=== PATIENT | female | born 1965 | race Caucasian/White ===

== ENCOUNTER → 2019-07-25 | Outpatient (CLI) | payer OTHER ==
[~2019-07-25] MED LIST: ATEN25 PO; HYDACE5 PO; LEVSOD200; LEVSOD25 PO; LORA1 PO; NAPR500 PO; PROZAC20 MG PO
[2019-07-25 15:51] LABS: Free Thyroxine 1.53 ng/dL (0.70-1.60); Thyroid Stimulating Hormone 0.049 uIU/mL (0.360-4.800)
== END | disposition home or self-care (01) ==
LOC: LAB SHORT 14:02 → LAB 14:02
PROVIDERS: Hospitalist
DX: E03.9 Hypothyroidism, unspecified (principal)
CPT/HCPCS: 84439; 84443

== ENCOUNTER → 2020-02-19 | Outpatient (CLI) | payer OTHER ==
[2020-02-19 16:38] LABS: Free Thyroxine 1.34 ng/dL (0.70-1.60); Thyroid Stimulating Hormone 0.029 uIU/mL (0.360-4.800)
== END | disposition home or self-care (01) ==
LOC: LAB SHORT 14:32 → LAB 14:32
PROVIDERS: Hospitalist
DX: Z12.4 Encounter for screening for malignant neoplasm of cervix (principal); E03.9 Hypothyroidism, unspecified
CPT/HCPCS: 84439; 84443; G0145

== ENCOUNTER 2021-03-12 22:40 | Emergency (ER) | payer OTHER ==
[~2021-03-12] VITALS: Ht 170.2 cm; Wt 83.9 kg
[2021-03-12] MEDS ORDERED: MELO7.5 (23:13)
[2021-03-12] MEDS ORDERED: LOSA50 PO (23:14)
[2021-03-12] MEDS ORDERED: CATAPRES0.1 MG (23:14)
[2021-03-12] MEDS ORDERED: NEURONTIN300 MG PO (23:15)
[2021-03-13 00:11] LABS: BASOPHILS ABSOLUTE AUTO 0.04 K/mm3 (0.00-0.23); BASOPHILS PERCENT AUTO 1 % (0-2); EOSINOPHILS PERCENT AUTO 2 % (0-6); Hematocrit 38.5 % (33.0-51.0); Hemoglobin 13.4 g/dL (11.5-16.0); IMMATURE GRAN ABSOLUTE AUTO 0.02 K/mm3 (0.00-0.10); IMMATURE GRAN PERCENT AUTO 0 % (0-1); LYMPHOCYTES ABSOLUTE AUTO 3.09 K/mm3 (0.84-5.20); LYMPHOCYTES PERCENT AUTO 37 % (21-46); MONOCYTES ABSOLUTE AUTO 0.62 K/mm3 (0.16-1.47); MONOCYTES PERCENT AUTO 7 % (4-13); Mean Corpuscular HGB 32.9 pg (26.0-34.0); Mean Corpuscular HGB Conc 34.8 g/dL (31.5-36.5); Mean Corpuscular Volume 95 fL (80-100); Mean Platelet Volume 9.4 fL (9.1-12.4); NEUTROPHILS ABSOLUTE AUTO 4.49 K/mm3 (1.96-9.15); NEUTROPHILS PERCENT AUTO 53 % (41-73); Platelet Count 345 K/mm3 (150-400); RDW Coefficient Variation 11.5 % (11.7-14.2); Red Blood Cell Count 4.07 M/mm3 (3.80-5.20); White Blood Cell Count 8.46 K/mm3 (4.00-11.30)
[2021-03-13 01:00] LABS: Alanine Aminotransfer (ALT/SGP 27 U/L (12-78); Albumin, Blood 3.6 g/dL (3.4-5.0); Alk Phos 76 U/L (50-136); Anion Gap 10 mmol/L (6-16); Aspartate Aminotrans (AST/SGOT 17 U/L (12-37); Bilirubin, Total 0.7 mg/dL (0.1-1.0); Blood Urea Nitrogen 20 mg/dL (8-24); Bun/Creatinine Ratio 31.7 (12.0-20.0); CO2, Blood 24 mmol/L (21-32); Calcium, Blood 9.3 mg/dL (8.5-10.1); Chloride, Blood 104 mmol/L (98-108); Creatinine, Blood 0.63 mg/dL (0.40-1.00); Globulin, Blood 3.5 g/dL (2.2-4.0); Glomerular Filtration Rate >60 (60-); Glucose, Blood 100 mg/dL (70-99); Potassium, Blood 3.6 mmol/L (3.5-5.5); Sodium, Blood 138 mmol/L (136-145); Thyroid Stimulating Hormone 0.841 uIU/mL (0.360-4.800); Total Protein, Blood 7.1 g/dL (6.4-8.2); Troponin I <0.015 ng/mL (0.000-0.040)
== END 2021-03-13 02:04 | disposition home or self-care (01) ==
LOC: ER 22:40
PROVIDERS: Emergency Medicine
DX: I10 Essential (primary) hypertension (principal); F41.9 Anxiety disorder, unspecified; E03.9 Hypothyroidism, unspecified; F17.210 Nicotine dependence, cigarettes, uncomplicated; Z88.5 Allergy status to narcotic agent; Z79.899 Other long term (current) drug therapy
CPT/HCPCS: 80053; 83880; 84443; 84484; 85025; 93005; 93010; 96374; 99283-25; A9270; J7030

== ENCOUNTER 2021-04-17 09:24 | Day surgery (SDC) | payer OTHER ==
[~2021-04-17] VITALS: Ht 172.7 cm; Wt 84.2 kg
[~2021-04-17 09:24] MED LIST changes: +Ativan1 MG PO; +CATAPRES0.1 MG PO; +LOSA50 PO; +MELO7.5 PO; +NEURONTIN300 MG PO
--- NOTE | 2021-04-17 13:28 | NUR ---
04/17/21 1328 Juliana Enciso BLOOD SAMPLE DRAWN UTILIZING BUTTERFLY NEEDLE FROM RIGHT HAND FOR TYPE AND SCREEN. PT TOLERATED WELL.
--- NOTE | 2021-04-17 17:24 | NUR ---
SHIFT SUMMARY PT A&OX4, VSS/RA, ENIO PO, PAIN TREATED WITH TYLENOL AND TORADOL, REPOSITIONS SELF WELL. S/P L OLIVIER, AQUACEL CDI, TEDS/SCDS/POLAR STEWART ON. AWAITING POST-OP VOID. WILL REPORT TO ONCAVANI BANKS RN.
--- NOTE | 2021-04-18 03:16 | NUR ---
SHIFT SUMMARY POD1 L TOTAL HIP ARTHROPLASTY. L HIP WITH AQUACEL DRESSING, CDI. LLE IS TTWB. PT AMBULATES WITH FWW, GB IN SBA. TOLERATING IT WELL. PT REPORT PAIN 3-4/10. PAIN MANAGED WITH 10MG BAO, TYLENOL AND TORADOL. TOLERATING REG DIET, DENIES NAUSEA AND VOMITING. VOIDING ADEQUATELY. VSS. PT DENIES CHEST PAIN AND SOB. PT ALSO DENIES NUMBNESS AND TINGLING. EXPERIENCE SOME TINGLING AT THE BOTTOM OF L FOOT ONCE. CALL LIGHT WITHIN REACH. WILL PROVIDE REPORT TO ONCOMING NURSE. PLAN: PT TO WORK WITH THERAPY TODAY AND TO BE DISCHARGE.
[2021-04-18 03:48] LABS: BASOPHILS ABSOLUTE AUTO 0.02 K/mm3 (0.00-0.23); BASOPHILS PERCENT AUTO 0 % (0-2); EOSINOPHILS PERCENT AUTO 0 % (0-6); Hematocrit 25.6 % (33.0-51.0); Hemoglobin 8.5 g/dL (11.5-16.0); IMMATURE GRAN ABSOLUTE AUTO 0.05 K/mm3 (0.00-0.10); IMMATURE GRAN PERCENT AUTO 0 % (0-1); LYMPHOCYTES ABSOLUTE AUTO 0.99 K/mm3 (0.84-5.20); LYMPHOCYTES PERCENT AUTO 7 % (21-46); MONOCYTES ABSOLUTE AUTO 1.35 K/mm3 (0.16-1.47); MONOCYTES PERCENT AUTO 9 % (4-13); Mean Corpuscular HGB 32.1 pg (26.0-34.0); Mean Corpuscular HGB Conc 33.2 g/dL (31.5-36.5); Mean Corpuscular Volume 97 fL (80-100); Mean Platelet Volume 9.6 fL (9.1-12.4); NEUTROPHILS ABSOLUTE AUTO 12.13 K/mm3 (1.96-9.15); NEUTROPHILS PERCENT AUTO 84 % (41-73); Platelet Count 300 K/mm3 (150-400); RDW Coefficient Variation 11.6 % (11.7-14.2); RDW Standard Deviation 40.9 fL (35.1-46.3); Red Blood Cell Count 2.65 M/mm3 (3.80-5.20); White Blood Cell Count 14.54 K/mm3 (4.00-11.30)
[2021-04-18 04:05] LABS: Anion Gap 7 mmol/L (6-16); Blood Urea Nitrogen 17 mg/dL (8-24); Bun/Creatinine Ratio 22.8 (12.0-20.0); CO2, Blood 25 mmol/L (21-32); Calcium, Blood 8.9 mg/dL (8.5-10.1); Chloride, Blood 107 mmol/L (98-108); Creatinine, Blood 0.75 mg/dL (0.40-1.00); Glomerular Filtration Rate >60 (60-); Glucose, Blood 132 mg/dL (70-99); Potassium, Blood 4.3 mmol/L (3.5-5.5); Sodium, Blood 139 mmol/L (136-145)
[2021-04-18] MEDS ORDERED: Aspir 8181 MG PO (14:22)
[2021-04-18] MEDS ORDERED: Percocet 5-3251 EACH PO (14:26)
--- NOTE | 2021-04-18 15:52 | NUR ---
DISCHARGE PT PROVIDED WITH WRITTEN AND VERBAL DISCHARGE INSTRUCTIONS; SHE REPORTED UNDERSTANDING. CLEAN DRESSINGS SENT HOME WITH PT. PAIN MEDICATION PROVIDED PRIOR TO DISCHARGE. PT CLEARED THERAPY, ABLE TO VOID, TOLERATING PO AND PAIN MANAGED WITH PO PAIN MEDICATION. PT ASSISTED OUT IN W/C BY JACINTO MCWILLIAMS.
== END 2021-04-18 15:52 | disposition home or self-care (01) ==
LOC: ORSCMMR 09:24 → SURS 16:04 → ORSCMMR 04-18 15:52
PROVIDERS: Orthopaedic Surgery
PROC: 0SRB0JA Replacement of Left Hip Joint with Synthetic Substitute, Uncemented, Open Approach (ICD-10-PCS; principal; 2021-04-17 10:45)
DX: M16.12 Unilateral primary osteoarthritis, left hip (principal); M25.852 Other specified joint disorders, left hip; I10 Essential (primary) hypertension; Z87.891 Personal history of nicotine dependence; E03.9 Hypothyroidism, unspecified; F41.8 Other specified anxiety disorders; Z79.899 Other long term (current) drug therapy
CPT/HCPCS: 36415; 72170; 80048; 85025; 86850; 86900; 86901; 88300; 97116; 97161; 97530; A9270; C1713; C1776; J0171; J0690; J0735; J1100; J1170; J1885; J2250; J2370; J2405; J2704; J2795; J3010; J7120

== ENCOUNTER → 2021-09-02 | Outpatient (CLI) | payer OTHER ==
[~2021-09-02] MED LIST changes: +Aspir 8181 MG PO; +Percocet 5-3251 EACH PO
[2021-09-02 19:06] LABS: Free Thyroxine 1.09 ng/dL (0.70-1.60)
[2021-09-02 19:10] LABS: Thyroid Stimulating Hormone 0.382 uIU/mL (0.360-4.800); Triiodothyronine, Free 2.16 pg/mL (2.18-3.98)
== END | disposition home or self-care (01) ==
LOC: LAB SHORT 13:50
PROVIDERS: Hospitalist
DX: E03.9 Hypothyroidism, unspecified (principal)
CPT/HCPCS: 84439; 84443; 84481

== ENCOUNTER 2021-11-24 07:41 | Day surgery (SDC) | payer OTHER ==
[~2021-11-24] VITALS: Ht 172.7 cm; Wt 80.8 kg
[2021-11-24] MEDS ORDERED: LORA.5 PO (15:45)
--- NOTE | 2021-11-24 19:16 | NUR ---
SHIFT SUMMARY PATIENT NEW ADMIT TO UNIT POST OP DAY 0 R OLIVIER. ALERT AND ORIENTED. TOLERATING REGULAR DIET AND LIQUIDS. VOIDING WELL. AMBULATING IN HALLS WITH PHYSICAL THERAPY. PAIN CONTROLLED WITH PO PAIN MEDS. SALINE LOCKED. AQUACEL TO RIGHT HIP C/D/I. POLAR PACK IN PLACE. PLAN TO DISCHARGE IN AM.
--- NOTE | 2021-11-25 03:57 | NUR ---
SHIFT SUMMARY A/O X4- POD1 L OLIVIER, AQUACEL IN PLACE, C/D/I. PAIN MANAGED W/ PO PAIN MEDICATION. VITAL SIGNS STABLE. AMBULATING WELL W/ SBA, FWW, AND GB. VOIDING WELL. TOLERATING PO INTAKE W/ NO SIGNS OF N/V. PLEASANT AND COOPERATIVE W/ CARE. WILL CONTINUE TO MONITOR AND REPORT TO ONCOMING RN.
[2021-11-25 05:25] LABS: BASOPHILS ABSOLUTE AUTO 0.02 K/mm3 (0.00-0.23); BASOPHILS PERCENT AUTO 0 % (0-2); EOSINOPHILS ABSOLUTE AUTO 0.01 K/mm3 (0.00-0.68); EOSINOPHILS PERCENT AUTO 0 % (0-6); Hematocrit 32.8 % (33.0-51.0); Hemoglobin 11.3 g/dL (11.5-16.0); IMMATURE GRAN ABSOLUTE AUTO 0.04 K/mm3 (0.00-0.10); IMMATURE GRAN PERCENT AUTO 0 % (0-1); LYMPHOCYTES ABSOLUTE AUTO 1.54 K/mm3 (0.84-5.20); LYMPHOCYTES PERCENT AUTO 13 % (21-46); MONOCYTES ABSOLUTE AUTO 1.11 K/mm3 (0.16-1.47); MONOCYTES PERCENT AUTO 10 % (4-13); Mean Corpuscular HGB 32.9 pg (26.0-34.0); Mean Corpuscular HGB Conc 34.5 g/dL (31.5-36.5); Mean Corpuscular Volume 96 fL (80-100); Mean Platelet Volume 9.8 fL (9.1-12.4); NEUTROPHILS ABSOLUTE AUTO 8.74 K/mm3 (1.96-9.15); NEUTROPHILS PERCENT AUTO 76 % (41-73); Platelet Count 264 K/mm3 (150-400); RDW Coefficient Variation 11.6 % (11.7-14.2); RDW Standard Deviation 40.5 fL (35.1-46.3); Red Blood Cell Count 3.43 M/mm3 (3.80-5.20); White Blood Cell Count 11.46 K/mm3 (4.00-11.30)
[2021-11-25 06:01] LABS: Calcium, Blood 9.1 mg/dL (8.5-10.1); Creatinine, Blood 0.68 mg/dL (0.40-1.00); Potassium, Blood 4.1 mmol/L (3.5-5.5)
[2021-11-25] MEDS ORDERED: ASPI81CH PO (10:33)
[2021-11-25] MEDS ORDERED: Percocet 5-3251 EACH PO (10:33)
--- NOTE | 2021-11-25 11:27 | NUR ---
DISCHARGE PT HAS CLEARED THERAPY. PAIN WELL CONTROLLED PER EMAR. EATING, DRINKING, & VOIDING WELL. AMBULATING WELL W/ FWW & GB. DISCUSSED DISCHARGE INSTRUCTIONS & SENT WITH PATIENT. ALSO SENT DRESSINGS, SCRIPTS, & POLAR PACK WITH PATIENT. ESCORTED OUT VIA W/C.
== END 2021-11-25 11:25 | disposition home or self-care (01) ==
LOC: ORSCMMR 07:41 → ORD 07:41 → ORSCMMR 07:42 → ORD 09:15 → SURS 14:21 → ORD 11-25 11:25
PROVIDERS: Orthopaedic Surgery
PROC: 0SR90JZ Replacement of Right Hip Joint with Synthetic Substitute, Open Approach (ICD-10-PCS; principal; 2021-11-24 09:15)
DX: M16.11 Unilateral primary osteoarthritis, right hip (principal); M87.851 Other osteonecrosis, right femur; M94.351 Chondrolysis, right hip; Z87.891 Personal history of nicotine dependence; E03.9 Hypothyroidism, unspecified; F41.8 Other specified anxiety disorders; Z79.899 Other long term (current) drug therapy
CPT/HCPCS: 36415; 72170; 80048; 85025; 94760; 97110; 97116; 97161; A9270; C1776; J0171; J0690; J0735; J1100; J1885; J2250; J2370; J2405; J2704; J2795; J3010; J7120

== ENCOUNTER → 2022-04-07 | Outpatient (CLI) | payer OTHER ==
[~2022-04-07] MED LIST changes: +ASPI81CH PO; +LORA.5 PO
[2022-04-07 15:28] LABS: BASOPHILS ABSOLUTE AUTO 0.06 K/mm3 (0.00-0.23); BASOPHILS PERCENT AUTO 1 % (0-2); EOSINOPHILS ABSOLUTE AUTO 0.16 K/mm3 (0.00-0.68); EOSINOPHILS PERCENT AUTO 3 % (0-6); Hematocrit 44.2 % (33.0-51.0); Hemoglobin 15.3 g/dL (11.5-16.0); IMMATURE GRAN ABSOLUTE AUTO 0.01 K/mm3 (0.00-0.10); IMMATURE GRAN PERCENT AUTO 0 % (0-1); LYMPHOCYTES ABSOLUTE AUTO 1.79 K/mm3 (0.84-5.20); LYMPHOCYTES PERCENT AUTO 31 % (21-46); MONOCYTES ABSOLUTE AUTO 0.45 K/mm3 (0.16-1.47); MONOCYTES PERCENT AUTO 8 % (4-13); Mean Corpuscular HGB 32.9 pg (26.0-34.0); Mean Corpuscular HGB Conc 34.6 g/dL (31.5-36.5); Mean Corpuscular Volume 95 fL (80-100); Mean Platelet Volume 10.7 fL (9.1-12.4); NEUTROPHILS ABSOLUTE AUTO 3.36 K/mm3 (1.96-9.15); NEUTROPHILS PERCENT AUTO 58 % (41-73); Platelet Count 277 K/mm3 (150-400); RDW Coefficient Variation 13.3 % (11.7-14.2); RDW Standard Deviation 46.5 fL (35.1-46.3); Red Blood Cell Count 4.65 M/mm3 (3.80-5.20); White Blood Cell Count 5.83 K/mm3 (4.00-11.30)
[2022-04-07 16:47] LABS: Free Thyroxine 1.05 ng/dL (0.70-1.60)
[2022-04-07 16:50] LABS: Albumin/Globulin Ratio 1.2 (0.8-1.8); Bilirubin, Total 0.5 mg/dL (0.1-1.0); Bun/Creatinine Ratio 29.5 (12.0-20.0); Calcium, Blood 9.6 mg/dL (8.5-10.1); Creatinine, Blood 0.68 mg/dL (0.40-1.00); Globulin, Blood 3.4 g/dL (2.2-4.0); Thyroid Stimulating Hormone 0.065 uIU/mL (0.360-4.800); Total Protein, Blood 7.4 g/dL (6.4-8.2); Triiodothyronine, Free 2.38 pg/mL (2.18-3.98)
== END | disposition home or self-care (01) ==
LOC: LAB SHORT 09:10
PROVIDERS: Hospitalist
DX: I10 Essential (primary) hypertension (principal); E03.9 Hypothyroidism, unspecified
CPT/HCPCS: 80053; 84439; 84443; 84481; 85025

== ENCOUNTER → 2023-04-14 | Outpatient (CLI) | payer OTHER ==
[2023-04-14 15:08] LABS: Free Thyroxine 1.18 ng/dL (0.70-1.60)
[2023-04-14 15:09] LABS: Thyroid Stimulating Hormone 0.038 uIU/mL (0.360-4.800)
== END | disposition home or self-care (01) ==
LOC: LAB SHORT 10:25 → LAB 10:25
PROVIDERS: Hospitalist
DX: E03.9 Hypothyroidism, unspecified (principal); I10 Essential (primary) hypertension
CPT/HCPCS: 84439; 84443

== ENCOUNTER → 2024-04-18 | Outpatient (CLI) | payer OTHER ==
[2024-04-18 20:08] LABS: Free Thyroxine 1.31 ng/dL (0.70-1.60)
[2024-04-18 20:11] LABS: Thyroid Stimulating Hormone 0.106 uIU/mL (0.360-4.800)
== END ==
LOC: LAB SHORT 17:40 → LAB 17:40
PROVIDERS: Hospitalist
DX: E03.9 Hypothyroidism, unspecified (principal)
CPT/HCPCS: 84439; 84443

== ENCOUNTER → 2024-10-16 | Outpatient (CLI) | payer OTHER ==
[2024-10-16 15:16] LABS: CHOL/HDL RATIO 3.1; Cholesterol 202 mg/dL (50-200); HDL Cholesterol 66 mg/dL (>39); LDL/HDL RATIO 1.8; Low Density Lipoprotein Chol 119 mg/dL (0-110); Triglycerides 83 mg/dL (30-160); Very Low Density Lipoprot Chol 16 mg/dL (6-32)
== END ==
LOC: LAB SHORT 08:00 → LAB 08:00
PROVIDERS: Hospitalist
DX: E78.00 Pure hypercholesterolemia, unspecified (principal)
CPT/HCPCS: 80061